=== PATIENT | male | born 1970 | race Caucasian/White ===

== ENCOUNTER 2016-09-24 13:28 | Emergency (ER) | payer SELFPAY ==
--- NOTE | ~2016-09-24 | ER ---
PATIENT'S NAME: ARIANNA BOTELLO [facility] AGE: 46 Y [address] ROOM: [place] [id number] LOCATION: [facility] ADMIT DATE: 09/24/2016 ER/Outpatient Report DISCHARGE DATE: 09/24/2016 FAMILY PHYSICIAN: PHYSICIAN, NO ATTENDING PHYSICIAN: Luis Serrano Time of Arrival: 1335 hours. Time of Exam: 1338 hours. CHIEF COMPLAINT: Back pain. HISTORY OF PRESENT ILLNESS: The patient reports that he has had back pain for quite some time, but it is getting worse over the past month. He denies having any surgery in the past to his back but has had several epidural injections, the last time being four or five years ago done in [place] doctor. He has not had any new trauma or injury to his back, but the pain and discomfort has worsened. The pain is primarily of the lower back and tailbone area. He states he has had some numbness of his right arm also that began approximately a month ago or so. Denies any change in his bowel or bladder pattern. ALLERGIES: NO KNOWN ALLERGIES. MEDICATIONS: No current medications. PAST MEDICAL HISTORY: Chronic back pain. PAST SURGERIES: Hernia repair. SOCIAL HISTORY: Presents to the ER accompanied by his mother. He does smoke 1 pack per day and has for the past 10 years. Does drink alcohol on a daily basis. REVIEW OF SYSTEMS: All negative other than those mentioned in the HPI. PHYSICAL EXAMINATION: VITAL SIGNS: He weighed 51.8 kilograms, blood pressure is 131/90, pulse of 83, respirations 20, temperature of 98.7, O2 saturation was 92% on room air. GENERAL: The patient is awake, alert, and oriented x4. PATIENT'S NAME: ARIANNA BOTELLO [facility] AGE: 46 Y [address] ROOM: [place], [place] [id number] LOCATION: [facility] ADMIT DATE: 09/24/2016 ER/Outpatient Report DISCHARGE DATE: 09/24/2016 FAMILY PHYSICIAN: PHYSICIAN, NO ATTENDING PHYSICIAN: Luis Serrano SKIN: [place], warm, and dry. LUNGS: Respirations are even and nonlabored. Lung sounds are clear throughout. HEART: Regular rate and rhythm. BACK: The patient is tender to palpation of the lower back, left seemed to be worse than right. EXTREMITIES: Peripheral pulses are strong. He has good use of the right hand. No peripheral edema noted. He walked in with a steady even gait. LABORATORY DATA AND X-RAYS: X-ray was completed, no acte bony abnormality is seen. IMPRESSION: Back pain. PLAN: Home, rest. Prescriptions were written for [place] and Flexeril. Ice or heat to the back area. If symptoms persist or worsen, the patient needs to follow up with the primary provider or an orthopedic doctor in the next 2 to 3 days. Discussed with him that he may need some physical therapy in order to alleviate some of his symptoms. He and his mother verbalized understanding. LENORE KHAN APRN FOR [facility]/kiara /[id number] d: 09/25/16 0027 t: 10/03/16 0912, OUTPATIENT REPORT
== END 2016-09-24 14:33 | disposition disaster alternative care site (69) ==
LOC: GMED 13:28
DX: M54.5 Low back pain (principal); Z87.891 Personal history of nicotine dependence